=== PATIENT | male | born 1980 | race Two or more races ===

== ENCOUNTER 2016-10-04 05:15 | Day surgery (SDC) | payer OTHER ==
--- NOTE | 2016-10-02 09:15 | GHP ---
[f rep st] PREOP HISTORY AND PHYSICAL DATE OF ADMISSION: 10/04/2016 DATE OF SURGERY: 10/04/2016. PREOPERATIVE DIAGNOSIS: Gallbladder polyp. HISTORY OF PRESENT ILLNESS: The patient is a 35-year-old man who was referred to our office for a g allbladder polyp. He was followed closely by GI of the [facility] for other issues including Ramos e sophagus with dysplasia, GERD, and persistent diarrhea. He had an ultrasound performed in August 2015 which showed a gallbladder polyp. The patient complains of occasional epigastric discomfort and kassidy sea. He is sensitive to fatty and spicy foods. He has suffered from GERD since he was a teenager a nd recently developed Ramos esophagus. FAMILY HISTORY: He has an extensive family history of cancer including colon cancer in a maternal a unt and maternal uncle. Lung cancer in paternal grandfather and bone, kidney, and breast cancer in a paternal aunt. PAST MEDICAL HISTORY: Ramos esophagus and GERD. PAST SURGICAL HISTORY: None. MEDICATIONS: Pantoprazole. ALLERGIES: No known drug allergies. SOCIAL HISTORY: Denies any alcohol, tobacco, or recreational drug use. REVIEW OF SYSTEMS: 10-point review of systems negative aside from HPI. PHYSICAL EXAMINATION: GENERAL: Well-developed, well-nourished man, in no acute distress. HEENT: Normocephalic, atraumatic. No hearing deficits. Pupils equal and round. No scleral icterus. Muco us membranes moist. NECK: Trachea midline. RESPIRATORY: No increased work of breathing. Clear t o auscultation bilaterally. CARDIOVASCULAR: Regular rate and rhythm. No peripheral edema. ABDOME N: Bowel sounds present. Soft, nondistended, and nontender. Umbilical hernia present, reducible. Tenderness in right upper quadrant. No rebound or guarding. MUSCULOSKELETAL: Normal gait. Karlee l nails. SKIN: Warm and dry. NEUROLOGIC: Grossly intact. PSYCHIATRIC: Mood and affect normal. IMPRESSION AND PLAN: The patient is a 35-year-old man with gallbladder polyp on ultrasound and an u mbilical hernia on physical exam. He will undergo laparoscopic cholecystectomy to obtain definitive diagnosis with open umbilical hernia repair at the same time without mesh. We discussed risks of s urgery including, but not limited to, heart attack, stroke, blood clots, or . We discussed ris k of infection, bleeding, damage to surrounding structures, including common bile duct, bile leak, o r recurrence of the hernia. He understands the risks and would like to proceed. This will be an ou tpatient procedure. He was additionally seen by Dr. Avani Del Valle who agrees with the above impressio n and plan. /[id number]/MODL
--- NOTE | 2016-10-03 18:54 | PDANEPAE ---
ANE Past Medical History - Cardiovascular History Hx Hypertension: No Hx Arrhythmias: No Hx Chest Pain: No Hx Coronary Artery / Peripheral Vascular Disease: No Hx CHF / Valvular Disease: No Hx Palpitations: No - Pulmonary History Hx COPD: No Hx Asthma/Reactive Airway Disease: No Hx Recent Upper Respiratory Infection: No Hx Oxygen in Use at Home: No Hx Sleep Apnea: No Sleep Apnea Screening Result - Last Documented: Negative - Neurologic History Hx Cerebrovascular Accident: No Hx Seizures: No Hx Dementia: No - Endocrine History Hx Diabetes: No - Renal History Hx Renal Disorders: No - Neurological & Psychiatric Hx Hx Neurological and Psychiatric Disorders: No - Cancer History Hx Cancer: No - Congenital Disorder History Hx Congenital Disorders: No - GI History GERD: moderate (On PPI) Hx Gastrointestinal Disorders: Yes Gastrointestinal History Comment: BARRETTS ESOPHAGUS. POLYP IN GALLBLADDER - Chronic Pain History Chronic Pain: No - Surgical History Prior Surgeries: NEG ANE Review of Systems - Exercise capacity METS (RN): 4 METS ANE Patient History - Allergies Allergies/Adverse Reactions: No Known Allergies Allergy (Unverified 09/26/16 15:31) - Home Medications Home medications: home medication list seen and reviewed Home Medications: Pantoprazole Sodium DAILY 09/26/16 [Last Taken 10/04/16 04:30] - NPO status NPO Status: no food or drink >8 hours - Anes Hx Anes Hx: no prior problems - Smoking Hx Smoking Status: Former smoker - Alcohol Use Alcohol Use: Occasionally - Family Anes Hx Family Anes Hx: neg - N/A Family Hx Anesthesia Complications: NEG ANE Labs/Vital Signs - Vital Signs Height: 167.64 cm Weight: 84.822 kg ANE Physical Exam - Airway Mallampati Score: Class 2 Mouth exam: normal dental/mouth exam, abnormal chin - Pulmonary Pulmonary: no respiratory distress - Cardiovascular Cardiovascular: regular rate and rhythym - ASA Status ASA Status: II ANE Anesthesia Plan Anesthesia Plan: general endotracheal anesthesia
[2016-10-04] MEDS ORDERED: ceFAZolin 2 GM/DEXTROSE 100 ML IV ONE (06:03)
[2016-10-04] MEDS ORDERED: LR 1,000 ML IV ONE (06:12)
[2016-10-04] MEDS ORDERED: LIDOCAINE 1% 2 ML INJ ID PRN (06:12)
[2016-10-04 06:34] VITALS: PULSE 67
[2016-10-04] MEDS ORDERED: ROCURONIUM 50 MG/5 ML VIAL ONE ×2 (06:39→07:59)
[2016-10-04] MEDS ORDERED: fentaNYL 100 MCG/2 ML INJ ONE ×3 (06:39→08:45)
[2016-10-04] MEDS ORDERED: LIDOCAINE 2% 5 ML SDV ONE (06:39)
[2016-10-04] MEDS ORDERED: PROPOFOL 200 MG/20 ML VIAL ONE (06:39)
[2016-10-04] MEDS ORDERED: BUPIVACAINE 0.5% 30 ML SDV ONE (07:01)
--- NOTE | 2016-10-04 07:01 | PDHPUP ---
History & Physical Update H&P update statement: This history and physical update is based on an assessment of the patient which was completed after admission or registration (within 24 hours), but prior to the surgery/procedure. H&P update: H&P reviewed & patient examined, no change in patient's condition since H&P completed
[2016-10-04] MEDS ORDERED: MIDAZOLAM 2 MG/2 ML VIAL IVP ONE ×2 (07:07→08:06)
[2016-10-04] MEDS ORDERED: MIDAZOLAM 2 MG/2 ML VIAL ONE (07:09)
[2016-10-04] MEDS ORDERED: NALOXONE HCL 0.4 MG/ML INJ IVP PRN ×2 (07:19→08:49)
[2016-10-04] MEDS ORDERED: OXYCODONE/APAP 5/325 TAB PO PRN (07:19)
[2016-10-04] MEDS ORDERED: ONDANSETRON 4 MG/2 ML VIAL IVP PRN (07:19)
[2016-10-04] MEDS ORDERED: LR 500 ML IV PRN (07:19)
[2016-10-04] MEDS ORDERED: DEXAMETHASONE 4 MG/ML VIAL ONE ×2 (07:46)
[2016-10-04] MEDS ORDERED: ONDANSETRON 4 MG/2 ML VIAL ONE (07:54)
[2016-10-04] MEDS ORDERED: SUGAMMADEX SODIUM 200 MG/2 ML VIAL IVP ONE (07:54)
--- NOTE | 2016-10-04 08:34 | POSTOPPROG ---
Post Op Note Date of Operation: 10/04/16 Surgeon: Avani Del Valle [employer] Developer: ben Anesthesiologist: rashi Anesthesia: GET(General Endotracheal) Pre-op Diagnosis: gallbladder polyp and umbilical hernia Post-op Diagnosis: same Indication: 35 yo with gallbladder polyp and umbilical hernia Procedure: lap paco and umbilical hernia repair Findings: omentum, intrahepatic gb Inf/Abcess present in the surg proc area at time of surgery?: No EBL: Minimal Specimen(s): gallbladder
[2016-10-04] MEDS: fentaNYL 100 MCG/2 ML INJ IVP PRN ×2 (08:46→08:52)
[2016-10-04] MEDS ORDERED: HYDROmorphONE/DILAUDID 1 MG/ML SYR ONE (09:18)
[2016-10-04] MEDS: HYDROmorphONE/DILAUDID 1 MG/ML SYR IVP PRN ×3 (09:20→09:50)
[2016-10-04 09:40] VITALS: TEMP 97.9
--- NOTE | 2016-10-04 09:53 | POSTANESTH ---
Post Anesthetic Evaluation Respiratory Status: Normal, Stable Level of Consciousness/Mental Status: Can Participate in Eval Pain Control: Adequate, Prn Tx Ordered Nausea/Vomiting Control: Adequate, Prn Tx Ordered
[2016-10-04] MEDS ORDERED: OXYCODONE/APAP 5/325 TAB ONE (11:15)
[2016-10-04 11:35] VITALS: BP 149/108; RESP 16; O2SAT 93
--- NOTE | 2016-10-04 14:39 | GOP ---
[f rep st] OPERATIVE REPORT DATE OF OPERATION: 10/04/2016 SURGEON: Avani Del Valle MD SURGEON ASSISTANT: Jeanie Silver PA-C ANESTHESIA: General. ANESTHESIOLOGIST: Demetrio Cardenas MD PREOPERATIVE DIAGNOSIS: 1. Gallbladder polyp. 2. Umbilical hernia. POSTOPERATIVE DIAGNOSIS: 1. Gallbladder polyp. 2. Umbilical hernia. PROCEDURE PERFORMED: 1. Laparoscopic cholecystectomy. 2. Umbilical hernia repair. FINDINGS: Omentum in the umbilical hernia; defect was less than 1 cm. SPECIMENS: Gallbladder. ESTIMATED BLOOD LOSS: 20 cc. INDICATIONS: The patient is a 35-year-old man who is known to have a gallbladder polyp. Cholecystectomy performed to rule carcinoma. He also had an umbilical hernia. DESCRIPTION OF PROCEDURE: Patient was brought into the operating room, placed supine on the table, and general anesthesia was administered. His abdomen was prepped and draped in the usual sterile fashion. I infiltrated all sites with 0.5% Marcaine prior to making incisions. I made a curvilinear incision at his umbilicus. I dissected down to the subcutaneous tissues. I came around his umbilicus with a hemostat and elevated the dermis away from the fascia and encountered omentum. I excised this and reduced it into the abdominal cavity. I encountered the defect. I placed a 10 mm trocar at this site and insufflated the abdomen to a pressure of 15 mmHg. Under direct vision, I placed a 5 mm subxiphoid trocar and two 5 mm trocars along the right costal margin. I lifted his gallbladder cephalad. His gallbladder was extremely decompressed. I had to perform careful dissection at the triangle of Calot, to skeletonize the cystic artery and cystic duct. There were only 2 structures seen directly entering the gallbladder. They were each singly clipped toward the gallbladder and doubly clipped distally. I was removing the gallbladder from the gallbladder fossa when I encountered a small posterior cystic artery which was also clipped. The gallbladder was removed from the gallbladder fossa. His liver was actually quite friable, and this was an intrahepatic gallbladder. The gallbladder was placed into an EndoCatch bag and removed via the 10 mm trocar. Suction irrigation was performed. Hemostasis was achieved on the liver bed with electrocautery and Darion. The trocars were removed under direct vision. Next, I sutured the defect closed at the umbilical hernia with 0 Surgilon using 4 interrupted sutures. I created a daniel umbilicus with 0 Vicryl. I closed the skin with 4-0 Monocryl. Dermabond applied. He was awakened in the operating room, extubated, and transferred to PACU in stable condition. /[id number]/MODL MTDD
== END 2016-10-04 11:29 | disposition home or self-care (01) ==
LOC: FSGY 05:15
PROVIDERS: ATTEND Surgery
PROC: 0FT44ZZ Resection of Gallbladder, Percutaneous Endoscopic Approach (ICD-10-PCS; principal; 2016-10-04 07:15)
PROC: 0WQF0ZZ Repair Abdominal Wall, Open Approach (ICD-10-PCS; principal; 2016-10-04 07:15)
DX: K82.4 Cholesterolosis of gallbladder (principal); K42.9 Umbilical hernia without obstruction or gangrene; K22.719 Barrett's esophagus with dysplasia, unspecified; K21.9 Gastro-esophageal reflux disease without esophagitis; R19.7 Diarrhea, unspecified; Z80.0 Family history of malignant neoplasm of digestive organs
CPT/HCPCS: J0690; J1100; J1170; J2250; J2405; J2704; J3010